=== PATIENT | female | born 1965 ===

== ENCOUNTER 2019-02-09 16:48 | Inpatient (IN) | payer MEDICAID ==
[~2019-02-09] VITALS: Ht 160 cm; Wt 61.2 kg
[~2019-02-09 16:48] MED LIST: NAPROSYN; RELAFEN
[2019-02-09] MEDS ORDERED: ASPIRIN 325 MG TABLET PO ONE (17:15)
[2019-02-09] MEDS ORDERED: ASPIRIN 325 MG TABLET ONE (17:27)
--- NOTE | 2019-02-09 17:31 | NUR ---
PT IS IN ROOM #2A. DR ARNDT EVALUATED THE PT.
[2019-02-09 17:39] LABS: BASOPHILS # (AUTO) 0.1 K/uL (0.0-8.0); BASOPHILS % (AUTO) 0.5 % (0.0-2.0); CREATININE 0.6 mg/dL (0.6-1.3); EOSINOPHILS # (AUTO) 0.1 K/uL (0.0-0.7); EOSINOPHILS % (AUTO) 1.5 % (0.0-7.0); HEMATOCRIT 42.7 % (31.2-41.9); HEMOGLOBIN 14.8 g/dL (10.9-14.3); LYMPHOCYTES # (AUTO) 2.8 K/uL (20.0-40.0); LYMPHOCYTES % (AUTO) 27.2 % (20.5-51.5); MEAN CORPUSCULAR HEMOGLOBIN 30.8 uug (24.7-32.8); MEAN CORPUSCULAR HGB CONC 35 g/dL (32.3-35.6); MEAN CORPUSCULAR VOLUME 88.6 fL (75.5-95.3); MONOCYTES # (AUTO) 0.5 K/uL (2.0-10.0); MONOCYTES % (AUTO) 4.6 % (0.0-11.0); NEUTROPHILS # (AUTO) 6.7 K/uL (1.8-8.9); NEUTROPHILS % (AUTO) 66.2 % (38.5-71.5); PLATELET COUNT (AUTO) 279 K/uL (179-408); POTASSIUM 3.7 mmol/L (3.5-5.1); RED BLOOD CELL COUNT(AUTO) 4.81 MIL/uL (3.63-4.92); WHITE BLOOD COUNT (AUTO) 10.2 K/uL (3.8-11.8)
[2019-02-09 17:52] LABS: BILIRUBIN,DIRECT 0.1 mg/dL (0.0-0.2); BILIRUBIN,TOTAL 0.5 mg/dL (0.2-1.0); TOTAL PROTEIN, SERUM 7.9 g/dL (6.4-8.2)
[2019-02-09] MEDS ORDERED: ONDANSETRON 4 MG/2 ML VIAL IV PRN (18:45)
[2019-02-09] MEDS ORDERED: MAGNESIUM HYDROXIDE 30 ML LIQUID UDC PO PRN (18:45)
[2019-02-09] MEDS ORDERED: MORPHINE SULFATE 2 MG/1 ML DISP.SYRIN IV PRN (18:45)
[2019-02-09] MEDS ORDERED: NITROGLYCERIN 0.4 MG/TAB BOTTLE SL ONE (18:45)
[2019-02-09] MEDS ORDERED: Z GUARD REMEDY PASTE 57 GM TUBE TOP PRN (18:45)
[2019-02-09] MEDS ORDERED: TEMAZEPAM 7.5 MG CAPSULE PO PRN (18:45)
[2019-02-09] MEDS ORDERED: ACETAMINOPHEN 325 MG TABLET PO PRN (18:45)
--- NOTE | 2019-02-09 19:00 | NUR ---
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
--- NOTE | 2019-02-09 19:12 | NUR ---
REPORT GIVEN TO [facility] SET UP OPERATOR RN.
[2019-02-09] MEDS ORDERED: ACETAMINOPHEN 325 MG TABLET PO ONE (19:30)
[2019-02-09] MEDS ORDERED: ACETAMINOPHEN ES 500 MG TABLET ONE (19:34)
--- NOTE | 2019-02-09 19:40 | NUR ---
PT ABLE TO TOLERATE PO MEDS FOR HEADACHE (08/21) PAIN , PARIETAL, NONRADIATING AOX4, DENIES NVD, DENIES CHST PN, SL NITRO NOT NEEDED AT THIS TIME DENIES SOB/DENIES CHILLS/JOINT PAIN PT KEPT WARM DRY AND COMFORTABLE KEPT CALM MONITORED ACCORDINGLY L AC G20 INTACT SALINE LOCK PENDING TRANSPORT TO ROOM TONIGHT
--- NOTE | 2019-02-09 19:54 | NUR ---
BELONGINGS LIST SIGNED BY DAY SHIFT BELONGINGS ACCOUNTED FOR
--- NOTE | 2019-02-09 20:18 | NUR ---
HAND OFF AND SBAR GIVEN TO CHRISTOS RN
[2019-02-09 21:05] VITALS: BP 150/69
--- NOTE | 2019-02-09 21:05 | NUR ---
TRANSPORTED TO ALL BELONGINGS W/ PT
[2019-02-09] MEDS: HYDROCODONE/APAP 5-325MG TABLET PO PRN (21:39)
[2019-02-10] VITALS: BP 110/49
[2019-02-10 04:00] VITALS: BP 99/54
[2019-02-10 06:47] LABS: EOSINOPHILS # (AUTO) 0.3 K/uL (0.0-0.7); HEMATOCRIT 39.6 % (31.2-41.9); HEMOGLOBIN 13.6 g/dL (10.9-14.3); LYMPHOCYTES # (AUTO) 3.3 K/uL (20.0-40.0); MEAN CORPUSCULAR VOLUME 90.1 fL (75.5-95.3); MONOCYTES # (AUTO) 0.5 K/uL (2.0-10.0); NEUTROPHILS # (AUTO) 2.4 K/uL (1.8-8.9)
[2019-02-10 06:53] LABS: BASOPHILS # (AUTO) 0.1 K/uL (0.0-8.0); BASOPHILS % (AUTO) 0.9 % (0.0-2.0); EOSINOPHILS % (AUTO) 4.2 % (0.0-7.0); LYMPHOCYTES % (AUTO) 50.7 % (20.5-51.5); MEAN CORPUSCULAR HEMOGLOBIN 30.9 uug (24.7-32.8); MEAN CORPUSCULAR HGB CONC 34 g/dL (32.3-35.6); MONOCYTES % (AUTO) 6.9 % (0.0-11.0); NEUTROPHILS % (AUTO) 37.3 % (38.5-71.5); PLATELET COUNT (AUTO) 247 K/uL (179-408)
[2019-02-10 06:59] LABS: WHITE BLOOD COUNT (AUTO) 6.5 K/uL (3.8-11.8)
[2019-02-10 07:00] LABS: CREATININE 0.6 mg/dL (0.6-1.3); MAGNESIUM 2.1 mg/dL (1.8-2.4); PHOSPHOROUS 4.5 mg/dL (2.5-4.9); POTASSIUM 4.1 mmol/L (3.5-5.1)
[2019-02-10 07:07] LABS: THYROID STIMULATING HORMONE 1.8 mIU/mL (0.358-3.740)
--- NOTE | 2019-02-10 07:25 | NUR ---
PATIENT IS RESTING IN BED DENIES DISCOMFORTS AT THIS TIME TELE MONITORING ORDERED WITH NO ECTOPY CALL LIGHTS AND PERSONAL BELONGINGS ARE WITHIN EASY REACH MADE COMFORTABLE AND WILL CONTINUE TO OBSERVE.
[2019-02-10] MEDS: ASPIRIN 81 MG TAB.CHEW PO SCH (08:24)
--- NOTE | 2019-02-10 10:14 | NUR ---
PATIENT WILL BE PICKED UP IN ABOUT 45 MINS BY THE AMBULANCE TO [place] FOR CARDIAC CTA ANGIO PATIENT AWARE.
[2019-02-10 11:15] VITALS: BP 110/52
--- NOTE | 2019-02-10 11:22 | NUR ---
PATIENT PICKED UP BY AMBULANCE TO [place] FOR CARDIAC CT ANGIO ORDERED.
--- NOTE | 2019-02-10 13:22 | NUR ---
PATIENT RETUNED BACK TO HER ROOM BY AMBULANCE IN SATISFACTORY CONDITION PLACED BACK ON TELEMETRY DENIES DISCOMFORTS AT THIS TIME.WILL CONTINUE TO OBSERVE AT THIS TIME.
[2019-02-10] MEDS: HYDROCODONE/APAP 5-325MG TABLET PO PRN (13:38)
[2019-02-10 15:40] VITALS: BP 115/61
--- NOTE | 2019-02-10 19:44 | NUR ---
Received patient in bed, no signs of acute distress noted. Family at bedside, patient is A/Ox4. Complains of headache, will administer PRN Tylenol. No complaints of SOB. Heplock on the left AC is intact and patent. Safety measures initiated. Bed is low and locked, call light within reach. Will continue to monitor.
[2019-02-10 20:08] VITALS: BP 141/81
[2019-02-10] MEDS ORDERED: ATORVASTATIN 20 MG TABLET PO SCH (21:00)
[2019-02-10] MEDS ORDERED: LORAZEPAM 2 MG/1 ML VIAL IV PRN (21:15)
[2019-02-10] MEDS ORDERED: CYCL30DR EACHEYE (21:16)
[2019-02-10] MEDS ORDERED: IBUP200C5 PO (21:17)
[2019-02-11 00:22] VITALS: BP 117/64
[2019-02-11 04:00] VITALS: BP 120/68
--- NOTE | 2019-02-11 06:35 | NUR ---
Patient slept well. PRN Ativan was effective. Safety measures given. Will endorse to next shift.
[2019-02-11 06:51] LABS: CREATININE 0.6 mg/dL (0.6-1.3); POTASSIUM 4.2 mmol/L (3.5-5.1)
--- NOTE | 2019-02-11 08:00 | NUR ---
Received patient awake in bed. AAOx4. Denies chest pain or feeling SOB. No s/s of acute distress. Safety measures implemented. Will continue to monitor.
[2019-02-11] MEDS: ASPIRIN 81 MG TAB.CHEW PO SCH (08:26)
[2019-02-11] MEDS ORDERED: ATOR20TA PO (10:36)
[2019-02-11] MEDS ORDERED: ASPI81TA31 PO (10:36)
[2019-02-11] MEDS ORDERED: PROP10TA10 PO (10:44)
[2019-02-11 11:02] VITALS: BP 110/61
--- NOTE | 2019-02-11 11:40 | NUR ---
Discharge back to home orders in place. Vital signs are stable. No SOB noted. Denies chest pain. Exit care and education provided along with new prescription. IV and ID band removed.
== END 2019-02-11 11:40 | disposition home or self-care (01) | DRG 756 ==
LOC: ER 16:51 → TELE3 20:26
PROVIDERS: ADMIT Nurse Practitioner Acute Care; ATTEND Nurse Practitioner Acute Care
PROC: B2211ZZ Computerized Tomography (CT Scan) of Multiple Coronary Arteries using Low Osmolar Contrast (ICD-10-PCS; principal; 2019-02-10)
DX: F41.9 Anxiety disorder, unspecified (principal); E78.00 Pure hypercholesterolemia, unspecified; J45.909 Unspecified asthma, uncomplicated; Z90.49 Acquired absence of other specified parts of digestive tract
CPT/HCPCS: 36415; 70030-TC; 71045; 83735; 84100; 84443; 85025; 85730; 93005; 93307; A4663; A9150; G0378; J2060; J2405